=== PATIENT | female | born 1965 | race Caucasian/White ===

== ENCOUNTER 2022-04-12 12:00 | Emergency (ER) | payer OTHER ==
[~2022-04-12] VITALS: Ht 165.1 cm; Wt 146.1 kg
[2022-04-12 13:27] LABS: EOSINOPHIL 2.5 % (0-5); HCT 48.5 % (37.0-47.0); HGB 15.8 g/dl (12.5-16.0); LYMPHOCYTE 19.2 % (15-48); MCH 29.1 pg (25.0-31.0); MCHC 32.6 g/dL (32.0-36.0); MCV 89.3 fL (78.0-100.0); MONOCYTE 7.5 % (0-12); MPV 9.9 fL (6.0-9.5); NEUTROPHIL 69.1 % (41-80); NRBC 0; PLT 254 K/uL (150-400); RBC 5.43 M/uL (4.20-5.40); RDW 13.4 % (11.5-14.0)
[2022-04-12 13:49] LABS: ALBUMIN 3.9 g/dL (3.4-5.0); BILIRUBIN - TOTAL 0.7 mg/dL (0.2-1.0); BUN/CREAT RATIO (CALC) 11.9 RATIO; C-REACTIVE PROTEIN 2.2 mg/dL (<=0.90); CREATININE 0.84 mg/dL (0.51-0.95); GLOBULIN (CALCULATION) 3.5 g/dL; TOTAL PROTEIN 7.4 g/dL (6.4-8.2)
[2022-04-12 13:52] LABS: LACTIC ACID 1.1 mmol/L (0.4-1.9)
[2022-04-12] MEDS ORDERED: AMOX TR-K CLV1 EAC4 PO (18:48)
[2022-04-12] MEDS ORDERED: NORCO 5-325 TA1 EACH PO (19:04)
== END 2022-04-12 19:07 | disposition home or self-care (01) ==
LOC: FER 12:00
PROVIDERS: Emergency Medicine
DX: K11.5 Sialolithiasis (principal); I10 Essential (primary) hypertension; E03.9 Hypothyroidism, unspecified; F17.200 Nicotine dependence, unspecified, uncomplicated; Z79.890 Hormone replacement therapy; Z79.899 Other long term (current) drug therapy
CPT/HCPCS: 36415; 70487; 70491; 80053; 83605; 84145; 85025; 86140; 87040; J1170; J2270; J2405; J2543; Q9967